=== PATIENT | male | born 1990 | race Hispanic/Latino ===

== ENCOUNTER 2018-10-07 06:23 | Inpatient (IN) | payer MEDICARE ==
[~2018-10-07] VITALS: Ht 170.2 cm; Wt 78.7 kg
[~2018-10-07 06:23] MED LIST: ACET1TAB25 PO; CALC0.5C11 PO; SODI454P2 MC
[2018-10-07 06:41] LABS: BASOPHILS % (AUTO) 0.7 % (0.0-5.0); HEMATOCRIT 27.4 % (42-54); LYMPHOCYTES % (AUTO) 13.1 % (21.0-51.0); MEAN CORPUSCULAR HEMOGLOBIN 29.3 pg (27.0-33.0); MEAN CORPUSCULAR HGB CONC 33.3 g/dL (32.0-36.0); MEAN CORPUSCULAR VOLUME 87.9 fL (79-99); NEUTROPHILS % (AUTO) 76.2 % (40.0-77.0); PLATELET COUNT (AUTO) 139 K/uL (130-400); RED BLOOD CELL COUNT(AUTO) 3.12 MIL/uL (4.50-6.20); RED CELL DISTRIBUTION WIDTH 15.7 % (11.0-15.5)
[2018-10-07 06:57] LABS: PARTIAL THROMBOPLASTIN TIME 26.6 SEC (26.3-35.5); PROTHROMBIN TIME 10.5 SEC (9.6-11.6)
[2018-10-07] MEDS ORDERED: ASPIRIN 325 MG TABLET ONE (07:01)
[2018-10-07] MEDS ORDERED: NITROGLYCERIN 1GM/1 INCH PACKET TD ONE (07:02)
[2018-10-07 07:09] LABS: ALBUMIN 2.9 g/dL (3.5-5.0); BILIRUBIN,TOTAL 0.6 mg/dL (0.2-1.0); TOTAL PROTEIN, SERUM 6.4 g/dL (6.0-8.3)
[2018-10-07 07:17] LABS: CREATININE 24.6 mg/dL (0.5-1.5)
[2018-10-07] MEDS ORDERED: FUROSEMIDE 10 MG/ML 2ML VIAL ONE (07:18)
[2018-10-07] MEDS ORDERED: IPRATROPIUM/ALBUTEROL SULFATE 3 ML SOLUTION IH ONE ×2 (07:37→17:37)
[2018-10-07 07:57] LABS: APPEARANCE,URINE Clear (CLEAR); BILIRUBIN,URINE Negative (NEGATIVE); COLOR,URINE Yellow (YELLOW); GLUCOSE, URINE (UA) 250 mg/dL (NEGATIVE); KETONES,URINE Negative (NEGATIVE); LEUKOCYTE ESTERASE ,URINE Negative (NEGATIVE); NITRATE,URINE Negative (NEGATIVE); OCCULT BLOOD,URINE Small (NEGATIVE); PH,URINE >=9.0 (5.0-8.0); PROTEIN,URINE >=1000 (NEGATIVE); UROBILINOGEN,URINE 0.2 mg/dL (0.2-1.0)
[2018-10-07 08:05] LABS: AMPHET/METH SCREEN,URINE NEGATIVE (NEGATIVE); BARBITURATE SCREEN, URINE NEGATIVE (NEGATIVE); BENZODIAZEPINES SCREEN,URINE NEGATIVE (NEGATIVE); CANNABINOID SCREEN,URINE NEGATIVE (NEGATIVE); COCAINE SCREEN,URINE NEGATIVE (NEGATIVE); OPIATE SCREEN,URINE NEGATIVE (NEGATIVE); PHENCYCLIDINE SCREEN,URINE NEGATIVE (NEGATIVE)
[2018-10-07] MEDS ORDERED: METOPROLOL TARTRATE 1 MG/ML 5ML VIAL IV ONE (08:35)
[2018-10-07 08:54] LABS: BACTERIA,URINE Rare /HPF (None Seen); RBC,URINE 0-1 /HPF (0-1); SQUAMOUS EPITHELIAL CELL,UR Rare /HPF (0-2); WBC,URINE None Seen /HPF (0-1)
[2018-10-07] MEDS ORDERED: ACETAMINOPHEN 325 MG TAB ONE (11:36)
[2018-10-07] MEDS ORDERED: ONDANSETRON HCL 4 MG/2 ML VIAL ONE (14:22)
[2018-10-07] MEDS ORDERED: IOHEXOL-350 75 ML VIAL IV ONE (15:39)
[2018-10-07] MEDS ORDERED: ACETAMINOPHEN 325 MG TAB PO PRN (17:15)
[2018-10-07] MEDS ORDERED: AZITHROMYCIN 500 MG in SODIUM CHLORIDE 0.9% 250 ML IV SCH (17:30)
[2018-10-07] MEDS ORDERED: CEFTRIAXONE SODIUM 1 GM ONE (18:12)
[2018-10-07] MEDS ORDERED: FUROSEMIDE 10 MG/ML 4ML VIAL ONE (19:39)
[2018-10-07] MEDS ORDERED: AZITHROMYCIN 500MG+NS 250ML 250 ML IV ONE (19:40)
[2018-10-07 19:59] LABS: APPEARANCE BODY FLUID CLEAR (CLEAR); COLOR,BODY FLUID LT YELLOW (LT YELLOW); SPECIMENTYPE,BODY FLUID PERITONEAL; TOTAL VOLUME,BODY FLUID 90 mL
[2018-10-07 20:00] LABS: BODY FLUID RBC 4 /cu. mm.; BODY FLUID WBC 3 /cu. mm.
[2018-10-07 21:00] VITALS: BP 143/110
[2018-10-07] MEDS: FUROSEMIDE 10 MG/ML 4ML VIAL IVP SCH (21:00)
[2018-10-07] MEDS ORDERED: LOSA100T20 PO (21:47)
[2018-10-07] MEDS ORDERED: BENZ-51 PO (21:47)
[2018-10-07] MEDS ORDERED: SEVE800 PO (21:49)
[2018-10-07] MEDS ORDERED: AMLO10TA6 PO (21:49)
[2018-10-07 21:57] VITALS: BP 143/110
[2018-10-07] MEDS ORDERED: BENZONATATE 100 MG CAPSULE PO PRN (23:00)
[2018-10-07] MEDS: IPRATROPIUM/ALBUTEROL SULFATE 3 ML SOLUTION IH PRN (23:58)
[2018-10-08] VITALS (7 sets, daily range): BP systolic 144–161; BP diastolic 96–108
[2018-10-08 05:25] LABS: HEMATOCRIT 23.8 % (42-54); MEAN CORPUSCULAR HEMOGLOBIN 29.8 pg (27.0-33.0); MEAN CORPUSCULAR VOLUME 87.6 fL (79-99); PLATELET COUNT (AUTO) 141 K/uL (130-400); RED BLOOD CELL COUNT(AUTO) 2.72 MIL/uL (4.50-6.20); RED CELL DISTRIBUTION WIDTH 16.1 % (11.0-15.5); WHITE BLOOD COUNT (AUTO) 8.4 K/uL (4.8-10.8)
[2018-10-08 05:41] LABS: ALBUMIN 2.4 g/dL (3.5-5.0); BILIRUBIN,TOTAL 0.3 mg/dL (0.2-1.0); MAGNESIUM 2.1 mg/dL (1.80-2.40); PHOSPHORUS 9.6 mg/dL (2.5-4.9); POTASSIUM 4.7 mmol/L (3.5-5.1); TOTAL PROTEIN, SERUM 5.5 g/dL (6.0-8.3)
[2018-10-08 05:46] LABS: BAND NEUTROPHILS % (MANUAL) 1 % (0-2); EOSINOPHILS % (MANUAL) 6 % (1-6); LYMPHOCYTES % (MANUAL) 13 % (22-44); MAN.DIFF COMMENT-IMPRESSION MANUAL DIF; MONOCYTES % (MANUAL) 4 % (2-9); PLATELET MORPHOLOGY COMMENT ADEQUATE; REACTIVE LYMPHOCYTES 1 % (0-0); SEGMENTED NEUTROPHILS % 75 % (40-70)
[2018-10-08 05:56] LABS: CREATININE 24.9 mg/dL (0.5-1.5)
[2018-10-08] MEDS: IPRATROPIUM/ALBUTEROL SULFATE 3 ML SOLUTION IH PRN ×3 (07:07→19:07)
[2018-10-08] MEDS ORDERED: PANTOPRAZOLE 40 MG/VIAL IVP SCH (09:00)
[2018-10-08] MEDS: SEVELAMER HCL 800 MG TABLET PO SCH ×3 (09:32→17:12)
[2018-10-08] MEDS: FOLIC ACID/VITAMIN B COMP W-C 1 MG CAPSULE PO SCH (09:32)
[2018-10-08] MEDS: FUROSEMIDE 10 MG/ML 4ML VIAL IVP SCH ×2 (09:33→22:19)
[2018-10-08] MEDS: AMLODIPINE BESYLATE 5 MG TAB PO SCH (09:33)
[2018-10-08] MEDS ORDERED: EPOETIN ALFA 10,000 UNIT/ML VIAL SQ SCH (11:00)
[2018-10-08] MEDS: CALCIUM ACETATE 667 MG CAPSULE PO SCH ×2 (12:15→17:12)
[2018-10-08] MEDS: AZITHROMYCIN 500MG+NS 250ML 250 ML IV SCH (12:15)
[2018-10-08] MEDS: CEFTRIAXONE SODIUM 1 GM IVP SCH (18:36)
[2018-10-08] MEDS: LOSARTAN 100 MG TABLET PO SCH (22:19)
[2018-10-09 04:00] VITALS: BP 147/104
[2018-10-09 05:02] LABS: HEMATOCRIT 23.2 % (42-54); MEAN CORPUSCULAR HEMOGLOBIN 29.5 pg (27.0-33.0); MEAN CORPUSCULAR HGB CONC 33.6 g/dL (32.0-36.0); MEAN CORPUSCULAR VOLUME 87.7 fL (79-99); PLATELET COUNT (AUTO) 127 K/uL (130-400); RED BLOOD CELL COUNT(AUTO) 2.64 MIL/uL (4.50-6.20); RED CELL DISTRIBUTION WIDTH 16.5 % (11.0-15.5); WHITE BLOOD COUNT (AUTO) 8.8 K/uL (4.8-10.8)
[2018-10-09 05:12] LABS: POTASSIUM 4.5 mmol/L (3.5-5.1)
[2018-10-09 05:28] LABS: BAND NEUTROPHILS % (MANUAL) 2 % (0-2); EOSINOPHILS % (MANUAL) 8 % (1-6); LYMPHOCYTES % (MANUAL) 16 % (22-44); MAN.DIFF COMMENT-IMPRESSION MANUAL DIFFERENTIAL; MONOCYTES % (MANUAL) 9 % (2-9); PLATELET MORPHOLOGY COMMENT SLIGHTLY DECREASED; SEGMENTED NEUTROPHILS % 65 % (40-70)
[2018-10-09 05:29] LABS: % IRON SATURATION 15.8 % (30-44); CREATININE 24.8 mg/dL (0.5-1.5)
[2018-10-09 07:49] VITALS: BP 160/120
[2018-10-09] MEDS: AZITHROMYCIN 500MG+NS 250ML 250 ML IV SCH (09:41)
[2018-10-09] MEDS: SEVELAMER HCL 800 MG TABLET PO SCH ×3 (09:41→16:54)
[2018-10-09] MEDS: FUROSEMIDE 10 MG/ML 4ML VIAL IVP SCH ×2 (09:42→21:51)
[2018-10-09] MEDS: CALCIUM ACETATE 667 MG CAPSULE PO SCH ×3 (09:42→16:46)
[2018-10-09] MEDS: FOLIC ACID/VITAMIN B COMP W-C 1 MG CAPSULE PO SCH (09:43)
[2018-10-09] MEDS: CEFTRIAXONE SODIUM 1 GM IVP SCH (09:43)
[2018-10-09] MEDS: AMLODIPINE BESYLATE 5 MG TAB PO SCH (09:43)
[2018-10-09] MEDS: PANTOPRAZOLE SODIUM 40 MG TABLET.DR PO SCH (10:37)
[2018-10-09] MEDS: ONDANSETRON HCL 4 MG/2 ML VIAL IVP PRN (10:41)
[2018-10-09 11:14] VITALS: BP 163/104
[2018-10-09 16:23] VITALS: BP 152/101
[2018-10-09 19:32] VITALS: BP 155/113
[2018-10-09] MEDS ORDERED: AMLODIPINE BESYLATE 5 MG TAB PO ONE (21:00)
[2018-10-09] MEDS: LOSARTAN 100 MG TABLET PO SCH (21:51)
[2018-10-09 23:40] VITALS: BP 145/102
[2018-10-10 03:47] VITALS: BP 142/91
[2018-10-10 05:05] LABS: HEMATOCRIT 24.6 % (42-54); MEAN CORPUSCULAR HEMOGLOBIN 29.8 pg (27.0-33.0); MEAN CORPUSCULAR VOLUME 87.5 fL (79-99); NUCLEATED RED BLOOD CELLS 0.1 % (0.0-0.19); PLATELET COUNT (AUTO) 155 K/uL (130-400); RED BLOOD CELL COUNT(AUTO) 2.81 MIL/uL (4.50-6.20); RED CELL DISTRIBUTION WIDTH 17.1 % (11.0-15.5)
[2018-10-10 05:16] LABS: POTASSIUM 4.4 mmol/L (3.5-5.1)
[2018-10-10 05:20] LABS: BASOPHILS % (MANUAL) 1 % (0-2); EOSINOPHILS % (MANUAL) 13 % (1-6); LYMPHOCYTES % (MANUAL) 12 % (22-44); MONOCYTES % (MANUAL) 8 % (2-9); REACTIVE LYMPHOCYTES 1 % (0-0); SEGMENTED NEUTROPHILS % 65 % (40-70)
[2018-10-10 05:21] LABS: MAN.DIFF COMMENT-IMPRESSION MANUAL DIFFERENTIAL; PLATELET MORPHOLOGY COMMENT ADEQUATE
[2018-10-10 05:57] LABS: CREATININE 23.2 mg/dL (0.5-1.5)
[2018-10-10] MEDS: PANTOPRAZOLE SODIUM 40 MG TABLET.DR PO SCH (07:30)
[2018-10-10 08:00] VITALS: BP 159/98
[2018-10-10] MEDS: CALCIUM ACETATE 667 MG CAPSULE PO SCH ×3 (08:00→17:50)
[2018-10-10] MEDS: FOLIC ACID/VITAMIN B COMP W-C 1 MG CAPSULE PO SCH (09:00)
[2018-10-10] MEDS: AMLODIPINE BESYLATE 5 MG TAB PO SCH (09:38)
[2018-10-10] MEDS: CEFTRIAXONE SODIUM 1 GM IVP SCH (09:38)
[2018-10-10] MEDS: AZITHROMYCIN 500MG+NS 250ML 250 ML IV SCH (09:39)
[2018-10-10] MEDS: FUROSEMIDE 10 MG/ML 4ML VIAL IVP SCH ×2 (09:39→19:49)
[2018-10-10] MEDS ORDERED: REGADENOSON 0.4 MG/5 ML PF SYG IVP SCH (10:00)
[2018-10-10] MEDS: SEVELAMER HCL 800 MG TABLET PO SCH ×2 (12:00→17:50)
[2018-10-10 12:50] VITALS: BP 158/95
[2018-10-10] MEDS: ONDANSETRON HCL 4 MG/2 ML VIAL IVP PRN (13:30)
[2018-10-10] MEDS ORDERED: IRON SUCROSE COMPLEX 100 MG in SODIUM CHLORIDE 0.9% 50 ML IV SCH (15:00)
[2018-10-10] MEDS ORDERED: COMPOUND IV MISC 1 EACH IVSOLN MISC PRN (15:00)
[2018-10-10 16:00] VITALS: BP 142/98
[2018-10-10] MEDS: METOPROLOL TARTRATE 50 MG TAB PO SCH ×2 (16:00→19:21)
[2018-10-10] MEDS: LOSARTAN 100 MG TABLET PO SCH (19:49)
[2018-10-10 19:57] VITALS: BP 142/90
[2018-10-10 23:54] VITALS: BP 145/97
[2018-10-11 04:00] VITALS: BP 139/78
[2018-10-11 05:29] LABS: HEMATOCRIT 23.5 % (42-54); MEAN CORPUSCULAR HEMOGLOBIN 29.5 pg (27.0-33.0); MEAN CORPUSCULAR HGB CONC 33.7 g/dL (32.0-36.0); MEAN CORPUSCULAR VOLUME 87.7 fL (79-99); PLATELET COUNT (AUTO) 142 K/uL (130-400); RED BLOOD CELL COUNT(AUTO) 2.68 MIL/uL (4.50-6.20); RED CELL DISTRIBUTION WIDTH 16.9 % (11.0-15.5); WHITE BLOOD COUNT (AUTO) 8.2 K/uL (4.8-10.8)
[2018-10-11 05:44] LABS: B-TYPE NATRIURETIC PEPTIDE 1750 pg/mL (0-100)
[2018-10-11 05:46] LABS: PHOSPHORUS 8.9 mg/dL (2.5-4.9); THYROID STIMULATING HORMONE 0.55 uIU/mL (0.36-3.74)
[2018-10-11] MEDS: PANTOPRAZOLE SODIUM 40 MG TABLET.DR PO SCH (06:21)
[2018-10-11 08:00] VITALS: BP 164/95
[2018-10-11] MEDS: CEFTRIAXONE SODIUM 1 GM IVP SCH (09:00)
[2018-10-11] MEDS: CALCIUM ACETATE 667 MG CAPSULE PO SCH ×3 (09:00→16:53)
[2018-10-11] MEDS: FUROSEMIDE 10 MG/ML 4ML VIAL IVP SCH (09:00)
[2018-10-11] MEDS: SEVELAMER HCL 800 MG TABLET PO SCH ×3 (09:00→16:54)
[2018-10-11] MEDS: AMLODIPINE BESYLATE 5 MG TAB PO SCH (09:01)
[2018-10-11] MEDS: FOLIC ACID/VITAMIN B COMP W-C 1 MG CAPSULE PO SCH (09:01)
[2018-10-11] MEDS: METOPROLOL TARTRATE 50 MG TAB PO SCH ×2 (09:02→20:43)
[2018-10-11] MEDS: AZITHROMYCIN 500MG+NS 250ML 250 ML IV SCH (09:40)
[2018-10-11 11:00] VITALS: BP 120/88
[2018-10-11 13:18] LABS: CHOLESTEROL 94 mg/dL (<200); HDL CHOLESTEROL 36 mg/dL (29-71); LDL DIRECT 52 mg/dL (0-99); TRIGLYCERIDES 84 mg/dL (30-200)
[2018-10-11 16:00] VITALS: BP 132/91
[2018-10-11 20:05] VITALS: BP 145/83
[2018-10-11] MEDS: LOSARTAN 100 MG TABLET PO SCH (20:43)
[2018-10-11 23:14] VITALS: BP 128/79
[2018-10-12] VITALS (14 sets, daily range): BP systolic 122–144; BP diastolic 56–102
[2018-10-12 04:18] LABS: HEMATOCRIT 25.5 % (42-54); MEAN CORPUSCULAR HEMOGLOBIN 30.6 pg (27.0-33.0); MEAN CORPUSCULAR HGB CONC 34.8 g/dL (32.0-36.0); MEAN CORPUSCULAR VOLUME 87.8 fL (79-99); PLATELET COUNT (AUTO) 191 K/uL (130-400); RED BLOOD CELL COUNT(AUTO) 2.91 MIL/uL (4.50-6.20); RED CELL DISTRIBUTION WIDTH 17.4 % (11.0-15.5); WHITE BLOOD COUNT (AUTO) 7.4 K/uL (4.8-10.8)
[2018-10-12 04:30] LABS: ALBUMIN 2.5 g/dL (3.5-5.0); BILIRUBIN,TOTAL 0.4 mg/dL (0.2-1.0); INR 1.08 (0.85-1.15); PARTIAL THROMBOPLASTIN TIME 27.8 SEC (26.3-35.5); PHOSPHORUS 8.2 mg/dL (2.5-4.9); POTASSIUM 4.1 mmol/L (3.5-5.1); PROTHROMBIN TIME 11.3 SEC (9.6-11.6); TOTAL PROTEIN, SERUM 5.6 g/dL (6.0-8.3)
[2018-10-12 04:31] LABS: CREATININE 20.7 mg/dL (0.5-1.5)
[2018-10-12] MEDS ORDERED: IOHEXOL 350 MG/ML 100ML INFUS..BTL IV ONE (07:11)
[2018-10-12] MEDS ORDERED: HEPARIN SODIUM 1000UNIT/ML 10ML VIAL ONE (07:11)
[2018-10-12] MEDS ORDERED: IOHEXOL-350 50ML VIAL IV ONE (07:11)
[2018-10-12] MEDS ORDERED: LIDOCAINE HCL 2% 20ML ONE (07:11)
[2018-10-12] MEDS ORDERED: LABETALOL HCL 5 MG/ML 20ML VIAL IV ONE (07:59)
[2018-10-12] MEDS ORDERED: METO-409 PO (09:01)
[2018-10-12] MEDS ORDERED: FOLI1TAB61 PO (09:01)
[2018-10-12] MEDS: FOLIC ACID/VITAMIN B COMP W-C 1 MG CAPSULE PO SCH (09:26)
[2018-10-12] MEDS: SEVELAMER HCL 800 MG TABLET PO SCH ×3 (09:26→17:25)
[2018-10-12] MEDS: CALCIUM ACETATE 667 MG CAPSULE PO SCH ×3 (09:26→17:25)
[2018-10-12] MEDS: CEFTRIAXONE SODIUM 1 GM IVP SCH (09:27)
[2018-10-12] MEDS: AMLODIPINE BESYLATE 5 MG TAB PO SCH (09:27)
[2018-10-12] MEDS ORDERED: COMPOUND IV MISC 1 EACH IVSOLN MISC PRN (09:30)
[2018-10-12] MEDS: SODIUM CHLORIDE 0.9% 10 ML VIAL IVP SCH ×2 (09:32→16:15)
[2018-10-12] MEDS: PANTOPRAZOLE SODIUM 40 MG TABLET.DR PO SCH (09:32)
[2018-10-12] MEDS: METOPROLOL TARTRATE 50 MG TAB PO SCH ×2 (09:32→20:49)
[2018-10-12] MEDS: IRON SUCROSE COMPLEX 300 MG in SODIUM CHLORIDE 0.9% 50 ML IV SCH (11:42)
[2018-10-12] MEDS: IPRATROPIUM/ALBUTEROL SULFATE 3 ML SOLUTION IH PRN (18:42)
[2018-10-12] MEDS: LOSARTAN 100 MG TABLET PO SCH (20:49)
[2018-10-12] MEDS ORDERED: IRON SUCROSE COMPLEX 100 MG in SODIUM CHLORIDE 0.9% 50 ML IV SCH (21:00)
[2018-10-13] MEDS: SODIUM CHLORIDE 0.9% 10 ML VIAL IVP SCH ×2 (00:15→09:10)
[2018-10-13 03:00] VITALS: BP 133/78
[2018-10-13 07:41] VITALS: BP 144/101
[2018-10-13] MEDS: PANTOPRAZOLE SODIUM 40 MG TABLET.DR PO SCH (07:59)
[2018-10-13] MEDS: FOLIC ACID/VITAMIN B COMP W-C 1 MG CAPSULE PO SCH (09:09)
[2018-10-13] MEDS: CALCIUM ACETATE 667 MG CAPSULE PO SCH ×2 (09:09→12:48)
[2018-10-13] MEDS: SEVELAMER HCL 800 MG TABLET PO SCH ×2 (09:09→12:48)
[2018-10-13] MEDS: IRON SUCROSE COMPLEX 300 MG in SODIUM CHLORIDE 0.9% 50 ML IV SCH (09:10)
[2018-10-13] MEDS: AMLODIPINE BESYLATE 5 MG TAB PO SCH (09:10)
[2018-10-13] MEDS: METOPROLOL TARTRATE 50 MG TAB PO SCH (09:10)
[2018-10-13] MEDS: CEFTRIAXONE SODIUM 1 GM IVP SCH (09:10)
[2018-10-13 11:40] VITALS: BP 144/96
== END 2018-10-13 13:55 | disposition home or self-care (01) | DRG 286 ==
LOC: EDH 06:23 → EDHIP 17:06 → 4CH 21:00 → 4BH 10-10 19:53 → 2AH 10-11 15:31
PROVIDERS: ADMIT Internal Medicine Nephrology; ATTEND Internal Medicine Nephrology
PROC: 4A023N7 Measurement of Cardiac Sampling and Pressure, Left Heart, Percutaneous Approach (ICD-10-PCS; principal; 2018-10-12)
PROC: B2151ZZ Fluoroscopy of Left Heart using Low Osmolar Contrast (ICD-10-PCS; 2018-10-12)
PROC: B2111ZZ Fluoroscopy of Multiple Coronary Arteries using Low Osmolar Contrast (ICD-10-PCS; 2018-10-12)
DX: I25.119 Atherosclerotic heart disease of native coronary artery with unspecified angina pectoris (principal); N18.6 End stage renal disease; I50.43 Acute on chronic combined systolic (congestive) and diastolic (congestive) heart failure; N12 Tubulo-interstitial nephritis, not specified as acute or chronic; J90 Pleural effusion, not elsewhere classified; I13.2 Hypertensive heart and chronic kidney disease with heart failure and with stage 5 chronic kidney disease, or end stage renal disease; E87.70 Fluid overload, unspecified; I42.0 Dilated cardiomyopathy; D64.9 Anemia, unspecified; E87.5 Hyperkalemia; N26.9 Renal sclerosis, unspecified; E83.39 Other disorders of phosphorus metabolism; R79.1 Abnormal coagulation profile; Z99.2 Dependence on renal dialysis; Z87.891 Personal history of nicotine dependence; Z91.15 Patient's noncompliance with renal dialysis; Z91.19 Patient's noncompliance with other medical treatment and regimen; Z91.11 Patient's noncompliance with dietary regimen
CPT/HCPCS: 36415; 71045; 71275; 78452; 78580; 80048; 80053; 80061; 80305; 81001; 82550; 82728; 83540; 83550; 83605; 83735; 83874; 83880; 84100; 84443; 84484; 85025; 85027; 85378; 85610; 85730; 86850; 86900; 86901; 87040; 87071; 87205; 89051; 93005; 93017; 93306; 93458; 93970; 94640; 94664; 96374; A4218; A9500; A9540; C1760; C1894; C9113; J0456; J0696; J0885; J1644; J1756; J1940; J2405; J2785; J3490; J7030; Q9967

== ENCOUNTER 2019-01-31 08:43 | Day surgery (SDC) | payer MEDICARE ==
[~2019-01-31] VITALS: Ht 172.7 cm; Wt 68.9 kg
[~2019-01-31 08:43] MED LIST changes: -ACET1TAB25 PO; +AMLO10TA7 PO; +BENZ-51 PO; +CALC0.253 PO; -CALC0.5C11 PO; +CARV25TA77 PO; +FOLI1TAB61 PO; +FURO10VI4 IV; +LOSA100T58 PO; +METO-409 PO; +SEVE800 PO; -SODI454P2 MC
[2019-01-31 09:53] LABS: BASOPHILS % (AUTO) 0.7 % (0.0-5.0); EOSINOPHILS % (AUTO) 5.8 % (0.0-8.0); HEMATOCRIT 34.1 % (42-54); LYMPHOCYTES % (AUTO) 20.9 % (21.0-51.0); MEAN CORPUSCULAR HEMOGLOBIN 31.2 pg (27.0-33.0); MEAN CORPUSCULAR HGB CONC 33.6 g/dL (32.0-36.0); MONOCYTES % (AUTO) 7.4 % (3.0-13.0); NEUTROPHILS % (AUTO) 65.2 % (40.0-77.0); PLATELET COUNT (AUTO) 165 K/uL (130-400); RED BLOOD CELL COUNT(AUTO) 3.66 MIL/uL (4.50-6.20); WHITE BLOOD COUNT (AUTO) 6.6 K/uL (4.8-10.8)
[2019-01-31 10:04] VITALS: BP 161/99
[2019-01-31 10:05] LABS: INR 1.02 (0.85-1.15); PARTIAL THROMBOPLASTIN TIME 30.4 SEC (26.3-35.5); PROTHROMBIN TIME 10.7 SEC (9.6-11.6)
[2019-01-31 10:10] LABS: ALBUMIN 3.6 g/dL (3.5-5.0); BILIRUBIN,TOTAL 0.4 mg/dL (0.2-1.0); POTASSIUM 4.7 mmol/L (3.5-5.1); TOTAL PROTEIN, SERUM 7.2 g/dL (6.0-8.3)
[2019-01-31 10:13] LABS: CREATININE 12.5 mg/dL (0.5-1.5)
--- NOTE | 2019-01-31 10:20 | NUR ---
ASSESSMENT PT HERE WITH MOTHER FOR PROCEDURE. DENIES ANY DISCOMFORT AT THIS TIME.
[2019-01-31] MEDS ORDERED: LIDOCAINE HCL 1% MDV 50ML VIAL ONE (11:19)
--- NOTE | 2019-01-31 11:29 | NUR ---
PROCEDURE DR. WOLF HERE FOR PROCEDURE ALONG WITH TIME STUDY ANALYST PERSONNEL EVELIN BAPTISTE AND YE GRAHAM.
[2019-01-31] MEDS ORDERED: BACITRACIN 1 EACH PACKET TP ONE (11:48)
[2019-01-31 11:50] VITALS: BP 148/93
[2019-01-31] MEDS ORDERED: MUPIROCIN OINTMENT 22 GM TUBE TP SCH (12:00)
--- NOTE | 2019-01-31 12:00 | NUR ---
REPORT RECEIVED REPORT FROM EVELIN BAPTISTE. POST PERMACATH REMOVAL. PT DOING WELL. DENIES ANY DISCOMFORT AT THIS TIME. CHEST X RAY BEING DONE AT BEDSIDE.
--- NOTE | 2019-01-31 12:05 | NUR ---
SITE CHECK SITE CHECK TO LEFT UPPER CHEST SOFT TO TOUCH. DRSG DRY TO TOUCH. NO BLEEDING, OOZING NOTED TO SITE.
[2019-01-31 12:10] VITALS: BP 138/95
--- NOTE | 2019-01-31 12:15 | NUR ---
SITE CHECK SITE CHECK TO LEFT UPPER CHEST SOFT TO TOUCH. DRSG DRY TO TOUCH. NO BLEEDING, OOZING NOTED TO SITE.
[2019-01-31 12:30] VITALS: BP 146/90
--- NOTE | 2019-01-31 12:30 | NUR ---
SITE CHECK SITE CHECK TO LEFT UPPER CHEST SOFT TO TOUCH. DRSG DRY TO TOUCH. NO BLEEDING, OOZING NOTED TO SITE.
[2019-01-31 12:45] VITALS: BP 145/92
--- NOTE | 2019-01-31 12:45 | NUR ---
SITE CHECK SITE CHECK TO LEFT UPPER CHEST SOFT TO TOUCH. DRSG DRY TO TOUCH. NO BLEEDING, OOZING NOTED TO SITE. DISCHARGE INSTRUCTIONS GIVEN TO PT AND PTS MOTHER. NO QUESTIONS AT THIS. CHEST XRAY NEGATIVE.
== END 2019-01-31 13:00 | disposition home or self-care (01) ==
LOC: DAH 08:43
PROVIDERS: ATTEND Internal Medicine Nephrology
DX: Z45.2 Encounter for adjustment and management of vascular access device (principal); I12.0 Hypertensive chronic kidney disease with stage 5 chronic kidney disease or end stage renal disease; E11.22 Type 2 diabetes mellitus with diabetic chronic kidney disease; N18.6 End stage renal disease; Z79.899 Other long term (current) drug therapy; Z98.890 Other specified postprocedural states
CPT/HCPCS: 36415; 36589; 71045; 80053; 85025; 85610; 85730; A4606; J3490

== ENCOUNTER → 2019-02-12 | Outpatient (CLI) | payer MEDICARE | END | disposition home or self-care (01) | LOC: SHCH 11:18 | PROVIDERS: ATTEND Internal Medicine Cardiovascular Disease | DX: I07.1 Rheumatic tricuspid insufficiency (principal); I42.0 Dilated cardiomyopathy | CPT/HCPCS: 93306 ==

== ENCOUNTER → 2021-01-28 | Outpatient (CLI) | payer MEDICARE ==
[~2021-01-28] MED LIST changes: +AMLO-258 PO; -AMLO10TA7 PO
== END | disposition home or self-care (01) ==
LOC: RAH 08:43
PROVIDERS: ATTEND Internal Medicine Nephrology
DX: R10.9 Unspecified abdominal pain (principal); Z94.0 Kidney transplant status
CPT/HCPCS: 76700

== ENCOUNTER → 2022-11-10 | Outpatient (CLI) | payer MEDICAID, MEDICARE ==
[~2022-11-10] MED LIST changes: -BENZ-51 PO; +BENZ-70 PO
== END | disposition home or self-care (01) ==
LOC: RAH 14:38
PROVIDERS: ATTEND Internal Medicine Nephrology
DX: Z51.81 Encounter for therapeutic drug level monitoring (principal); Z48.22 Encounter for aftercare following kidney transplant; I10 Essential (primary) hypertension; N05.9 Unspecified nephritic syndrome with unspecified morphologic changes; Z79.2 Long term (current) use of antibiotics; Z79.899 Other long term (current) drug therapy; Z92.25 Personal history of immunosuppression therapy; Z94.0 Kidney transplant status
CPT/HCPCS: 76770

== ENCOUNTER 2025-02-07 01:49 | Emergency (ER) | payer MEDICAID ==
[~2025-02-07] VITALS: Ht 172.7 cm; Wt 77.1 kg
[~2025-02-07 01:49] MED LIST changes: +BENZ-226 PO; -BENZ-70 PO; -LOSA100T58 PO; +LOSA100T59 PO
--- NOTE | 2025-02-07 02:33 | NUR ---
ASSUMED PT CARE
--- NOTE | 2025-02-07 02:54 | ERN ---
General Chief Complaint: Testicular Injury/Pain Stated Complaint: TESTICLE SWELLING Time Seen by : 01:59 Time Seen by Midlevel: 01:59 Source: patient History of Present Illness Initial Comments The patient is a 34-year-old male presenting to the emergency department with pain and swelling to bilateral testicles that started Monday evening. He reports similar episodes in the past. He states his left testicle hurts more than the right one. He denies any direct injury to his testicles. He was currently sexually active but has no concerns for a sexually transmitted disease at this time. Denies any dysuria/hematuria. Allergies: Coded Allergies: No Known Drug Allergies (Unverified Allergy, Unknown, 07/28/17) Home Meds Active Scripts Doxycycline Hyclate (Doxycycline Hyclate) 100 Mg Tablet.dr, 1 TAB PO BID for 10 Days, #20 TAB 0 Refills Prov:MICHAEL GUARDADO MD 02/07/25 Vit B Cmplx 3/FA/Vit C/Biotin (Nephro-Tova Rx Tablet) 1 Each Tablet, 1 EACH PO DAILY for 30 Days, TAB 3 Refills Prov:KENIA PINO MD 10/12/18 Metoprolol Succinate (Metoprolol Succinate) 100 Mg Tab.er.24h, 100 MG PO DAILYDINNER for 30 Days, #30 TAB 2 Refills Prov:KENIA PINO MD 10/12/18 Reported Medications Carvedilol (Coreg) 25 Mg Tablet, 25 MG PO BID, TAB 11/12/18 Furosemide (Lasix 40Mg Vial) 10 Mg/1 Ml Vial, 80 MG IV BID, VIAL 11/12/18 Calcitriol (Calcitriol) 0.25 Mcg Capsule, 0.25 MCG PO BID, CAP 11/12/18 Sevelamer HCl (Renagel) 800 Mg Tablet, 5 CAP PO TIDMEALS 10/07/18 Amlodipine Besylate (Amlodipine Besylate) 10 Mg Tablet, 10 MG PO DAILY 10/07/18 Benzonatate (Benzonatate) 100 Mg Capsule, 100 MG PO BID PRN for COUGH 10/07/18 Losartan Potassium (Losartan Potassium) 100 Mg Tablet, 100 MG PO HS 10/07/18 Past Medical History Past Medical History: Other Medical History Other: KIDNEY TRANSPLANT Past Surgical History: None ROS Dictation CONSTITUTIONAL: Negative except for HPI HEAD/FACE: Negative except for HPI EENT: Negative except for HPI RESPIRATORY: Negative except for HPI GASTROINTESTINAL/ABDOMINAL: Negative except for HPI GENITOURINARY: Negative except for HPI MUSCULOSKELETAL: Negative except for HPI INTEGUMENTARY: Negative except for HPI NEUROLOGICAL/PSYCH: Negative except for HPI HEMATOLOGIC/LYMPHATIC: Negative except for HPI All Systems Negative, Except as noted above. 13 point review of systems assessed and all negative except for above. Physical Exam Physical Exam Dictation Vital Signs reviewed General Appearance: Alert, oriented x 3, no acute distress, well developed, nourished. Head and Face: non-traumatic. Eyes: PERRL, pink conjunctivas, eyelid no trauma, anterior chamber with arcus senilis. Ears: Pinnas intact and no signs of trauma or erythema ear canals clear and no discharge TM no erythema Nose: No discharge, no bleeding. Oropharynx: Mouth normal, tongue pink, pharynx clear,no erythema, tonsils no exudates, no abscesses noted, mucous membrane moist Neck: Supple, non-tender, no thyromegaly, no masses, no JVD, no bruits Breast:Deferred Chest:No tenderness, no crepitus, no paradoxical movement, no retractions Lungs:Clear, well-ventilated, symmetric, no rales, no wheezing, no rhonchi, no stridor, good breath sounds bilaterally Heart: Regular rate, regular rhythm, no murmur, no gallops Vascular: no peripheral edema, Abdomen: Soft, positive bowel sounds, nondistended, no guarding, nontender, no rebound, no masses no hepatomegaly, no splenomegaly, no Oquendo's sign, no hernias. Rectal: Deferred Genital: Deferred Neurological: Normal speech, motor function intact, sensory function intact Musculoskeletal: Neck nontender, full range of motion, back nontender, full range of motion, Extremities: nontender, full range of motion Skin: Color pink, dry, no turgor, no rash, no lacerations, no abrasions, no contusions. Lymphatic: Deferred Results Laboratory and Microbiology Lab and Micro Result Laboratory Tests Test 02/07/25 02:44 Urine Color LIGHT-YELLOW (YELLOW) Urine Appearance CLEAR (CLEAR) Urine pH 6.5 (5.0-8.0) Urine Specific [place] 1.023 (1.001-1.031) Urine Protein NEGATIVE mg/dL (NEGATIVE) Urine Glucose (UA) NEGATIVE mg/dL (NEGATIVE) Urine Ketones NEGATIVE mg/dL (NEGATIVE) Urine Occult Blood NEGATIVE (NEGATIVE) Urine Nitrate NEGATIVE (NEGATIVE) Urine Bilirubin NEGATIVE mg/dL (NEGATIVE) Urine Urobilinogen 0.2 mg/dL (0.2-1.0) Urine Leukocyte Esterase 25 Ilan/uL (NEGATIVE) H Urine RBC 2-5 /HPF (0-1) H Urine WBC 6-10 /HPF (0-1) H Urine Squamous Epithelial Cells RARE /HPF (0-2) Urine Bacteria FEW /HPF (None Seen) MDM MDM: Differential diagnosis: There are no social concerns with this patient. Prescription drug management Prescriptions will include: Medical management and examination interpretation discussions were had by me with other qualified healthcare professionals as indicated for the patient's care. ED Course Orders Procedure Category Date Status Time Urinalysis Profile LAB 02/07/25 Complete 01:59 Us Scrotum & Contents US 02/07/25 Taken 01:59 Culture Urine SHERIE 02/07/25 In Process 03:49 Ceftriaxone 1g Vial PHA 02/07/25 Complete (Rocephine 1g Inj) 04:00 Lidocaine Hcl 1% 20ml PHA 02/07/25 Complete Vial (Lidocaine Hc 04:12 Current Medications Medications (Trade) Dose Ordered Sig/Keyla Route PRN Reason Start Time Stop Time Status Last Admin Dose Admin Ceftriaxone Sodium (ROCEphine 1G INJ) 1 gm ONCE ONCE IVPB 02/07/25 04:00 02/07/25 04:01 DC 02/07/25 04:14 Lidocaine HCl (Lidocaine HCl 1% 20ml Vial) 20 ml STK-MED ONCE .ROUTE 02/07/25 04:12 02/07/25 04:12 DC Vital Signs Date Time Temp Pulse Resp B/P (MAP) Pulse Ox O2 Delivery O2 Flow Rate FiO2 02/07/25 02:48 98.4 78 18 132/65 99 Room Air* 0 21 02/07/25 01:55 99.0 113 19 145/103 95 Room Air 2:20 a.m. patient was signed out to me. This is a 34-year-old male with known history of renal failure on dialysis before underwent a renal transplantation with his brother donating his kidney and is on immunosuppressive medications. He came in with bilateral testicular swelling and pain. Temperature 99 initially tachycardic at 1:13 a.m.. Labs and ultrasound of the scrotum reviewed Ultrasound evidence of bilateral epididymo-orchitis noted. I independently re-evaluated the patient and he denied any recent urological procedures. So denied any anal intercourse. No drainage from the urethra. Gave him a dose of Rocephin and we will discharge him on doxycycline for 10 days. Patient to follow up with Urology in 1 week DX & DISP Disposition: Discharge Departure Impression: Primary Impression: Epididymitis, bilateral Additional Impressions: Orchitis, bilateral, History of kidney transplant, Acute on chronic combined systolic and diastolic congestive heart failure, Cardiac LV ejection fraction of 35-39%, Dilated cardiomyopathy Condition: Stable Scripts Doxycycline Hyclate (Doxycycline Hyclate) 100 Mg Tablet.dr 1 TAB PO BID for 10 Days, #20 TAB 0 Refills Prov: MICHAEL GUARDADO MD 02/07/25 Additional Instructions: Patient and the caregiver have been informed of all the diagnostic tests and the imaging conducted during the today's visit to the emergency room and has verbalized understanding of the results I have personally reviewed and interpreted all diagnostic exams performed here in the ER today as well as the vital signs documented by the nursing staff. The patient is now being discharged to home and should follow up with the primary care physician or the specialist as directed by the ER staff. Follow-up with primary care provider in 1 to 2 days. Take medications as directed here in the emergency room. Okay to continue home medications unless otherwise discussed during your visit in the emergency room today. Return to your nearest emergency room if symptoms worsen or if there is no improvement. Call 911 if you need immediate assistance. Take Tylenol or Motrin [id number] as needed and if no contraindications are present. Increase oral hydration. A wound culture or urine culture was ordered here in the emergency room department please follow-up with primary care provider and advise them to get repeat ports from our facility. If you had any Ricky wrap/splints that were applied here, please do not remove them until you see your primary care or specialty. Referrals: SELF,REFERRAL (PCP) SUHA POLK MD, LUIS A PA Feb 07, 2025 02:53 MICHAEL GUARDADO MD Feb 07, 2025 04:50
[2025-02-07 03:47] LABS: ADD UA MICROSCOPIC YES; APPEARANCE,URINE CLEAR (CLEAR); BILIRUBIN,URINE NEGATIVE (NEGATIVE); COLOR,URINE LIGHT-YELLOW (YELLOW); GLUCOSE, URINE (UA) NEGATIVE (NEGATIVE); KETONES,URINE NEGATIVE (NEGATIVE); LEUKOCYTE ESTERASE ,URINE 25 Leu/uL (NEGATIVE); NITRATE,URINE NEGATIVE (NEGATIVE); OCCULT BLOOD,URINE NEGATIVE (NEGATIVE); PH,URINE 6.5 (5.0-8.0); PROTEIN,URINE NEGATIVE (NEGATIVE); UROBILINOGEN,URINE 0.2 mg/dL (0.2-1.0)
[2025-02-07 03:49] LABS: BACTERIA,URINE FEW /HPF (None Seen); SQUAMOUS EPITHELIAL CELL,UR RARE /HPF (0-2)
[2025-02-07] MEDS: cefTRIAXone 1G VIAL IVPB ONE (04:14)
[2025-02-07] MEDS: LIDOCAINE HCL 1% 20 ML VIAL ONE (04:31)
[2025-02-07] MEDS ORDERED: DOXY-252 PO (04:47)
[2025-02-07 05:11] VITALS: BP 125/62; PULSE 78; RESP 20; TEMP 98.4; O2SAT 95
--- NOTE | 2025-02-07 08:31 | HMCIMG ---
Testicular ultrasound with color-flow Doppler Findings: The testes are of normal size and echogenicity. Vascular flow is preserved to both testes- there is no evidence of torsion. There is no evidence of inflammation. No fluid collections are seen. Specifically, there is no hydrocele. The epididymis is unremarkable bilaterally. There is no evidence of varicoceles. Scrotal wall is normal in thickness bilaterally. Impression: Normal exam.
== END 2025-02-07 05:13 | disposition home or self-care (01) ==
LOC: EDH 01:49
DX: N45.3 Epididymo-orchitis (principal); I50.23 Acute on chronic systolic (congestive) heart failure; Z79.899 Other long term (current) drug therapy; Z94.0 Kidney transplant status
CPT/HCPCS: 99285; 96365; 87086; 81001; 76870; J0696